=== PATIENT | female | born 1940 | race Two or more races ===

== ENCOUNTER 2017-05-16 13:47 | Inpatient (IN) | payer MEDICAID, MEDICARE ==
[~2017-05-16] VITALS: Ht 152.4 cm; Wt 51.7 kg
[2017-05-16] MEDS ORDERED: ATOR10TA PO (14:26)
[2017-05-16] MEDS ORDERED: NIFE60TA73 PO (14:26)
[2017-05-16] MEDS ORDERED: OLME20TA23 PO (14:26)
[2017-05-16] MEDS ORDERED: MELO-105 PO (14:26)
[2017-05-16] MEDS ORDERED: IV NS 0.9% 1,000 ML BAG IV ONE (14:30)
[2017-05-16] MEDS ORDERED: PIPERACILLIN /TAZOBACTAM 3.375 G in IV D5W 50 ML IV ONE (14:30)
[2017-05-16] MEDS ORDERED: VANCOMYCIN 1 GM in IV D5W 250 ML IV ONE (14:30)
[2017-05-16 14:37] LABS: BASOPHILS # (AUTO) 0.1 /CMM (0.0-0.2); EOSINOPHILS # (AUTO) 0.4 /CMM (0.0-0.7); EOSINOPHILS % (AUTO) 5.3 % (0.0-6.0); HEMATOCRIT 31 % (33-45); HEMOGLOBIN 10.9 g/dL (11.5-14.8); LYMPHOCYTES # (AUTO) 1.1 /CMM (0.8-4.8); LYMPHOCYTES % (AUTO) 14.8 % (20.0-44.0); MEAN CORPUSCULAR HEMOGLOBIN 31 PG (26.0-33.0); MEAN CORPUSCULAR HGB CONC 35 g/dl (31.0-36.0); MEAN CORPUSCULAR VOLUME 89 fL (82-100); MONOCYTES # (AUTO) 0.9 /CMM (0.1-1.30); MONOCYTES % (AUTO) 12.1 % (2.0-12.0); NEUTROPHILS # (AUTO) 4.8 /CMM (1.8-8.9); NEUTROPHILS % (AUTO) 66.8 % (43.0-81.0); PLATELET COUNT (AUTO) 368 /CMM (150-450); RDW COEFFICIENT OF VARIATION 14.2 (11.5-15.0); RED BLOOD CELL COUNT(AUTO) 3.52 MIL/uL (4.0-5.2); WHITE BLOOD COUNT (AUTO) 7.3 K/uL (4.3-11.0)
[2017-05-16 14:50] LABS: INR 0.97 (0.87-1.13); PROTHROMBIN TIME 10.1 SECS (9.5-12.7)
[2017-05-16 14:53] LABS: ALANINE AMINOTRANSFERASE 33 U/L (12-78); ALBUMIN 3.3 g/dL (3.4-5.0); ALKALINE PHOSPHATASE 84 U/L (46-116); ASPARTATE AMINOTRANSFERASE 35 U/L (15-37); BILIRUBIN,DIRECT 0.1 mg/dL (0.0-0.2); BILIRUBIN,TOTAL 0.4 mg/dL (0.2-1.0); CALCIUM, SERUM 9.1 mg/dL (8.5-10.1); CARBON DIOXIDE 27 mmol/L (21-32); CHLORIDE 97 mmol/L (98-107); CREATININE 1.1 mg/dL (0.6-1.3); GLUCOSE 126 mg/dL (74-106); POTASSIUM 4.1 mmol/L (3.5-5.1); SODIUM SERUM 135 mmol/L (136-145); TOTAL PROTEIN, SERUM 8.1 g/dL (6.4-8.2); UREA NITROGEN, BLOOD 21 mg/dL (7-18)
[2017-05-16 14:55] LABS: TROPONIN I < 0.017 ng/mL (0.00-0.056)
[2017-05-16 15:43] LABS: APPEARANCE,URINE Clear (CLEAR); BILIRUBIN,URINE Negative (NEGATIVE); BLOOD, URINE Small Ery/uL (NEGATIVE); COLOR,URINE Yellow (YELLOW); KETONES,URINE Negative (NEGATIVE); LEUKOCYTE ESTERASE ,URINE Moderate (NEGATIVE); NITRITE, URINE Negative (NEGATIVE); PROTEIN,URINE Negative (NEGATIVE); UGLUCOSE Negative (NEGATIVE); UROBILINOGEN,URINE 0.2 EU/dL (0.2)
[2017-05-16 15:47] LABS: BACTERIA,URINE 1+ /HPF (None Seen); SQUAMOUS EPITHELIAL CELL,UR Moderate /HPF (None Seen)
[2017-05-16] MEDS ORDERED: ACETAMINOPHEN 325 MG TABLET PO PRN (18:00)
[2017-05-16] MEDS ORDERED: ONDANSETRON HCL/PF 4 MG/2 ML VIAL IVP PRN (18:00)
[2017-05-16] MEDS ORDERED: MAG HYDROX/AL HYDROX/SIMETH 30 ML UDC PO PRN (18:00)
[2017-05-16] MEDS ORDERED: Z GUARD REMEDY 2 OZ OINT TP PRN (18:00)
[2017-05-16] MEDS ORDERED: ZOLPIDEM TARTRATE 5 MG TABLET PO PRN (18:00)
[2017-05-16] MEDS ORDERED: HYDROCODONE/APAP 5/325MG 1 EACH TABLET PO PRN (18:00)
[2017-05-16] MEDS ORDERED: FEE PK DOSING 1 MIN EA MC ONE (18:57)
[2017-05-16 20:00] VITALS: BP 116/66
[2017-05-16] MEDS: IV NS 0.9% 1,000 ML IV PRN (21:10)
[2017-05-16] MEDS: CEFTRIAXONE 1 G in IV D5W 50 ML IV SCH (21:11)
[2017-05-17] MEDS ORDERED: LOSA100T15 PO (00:15)
[2017-05-17] MEDS ORDERED: TERI2.4P SUBCUT (00:15)
[2017-05-17] MEDS ORDERED: ASPI-1152 PO (00:15)
[2017-05-17] MEDS: VANCOMYCIN 500 MG in IV D5W 100 ML IV SCH ×2 (02:33→15:45)
[2017-05-17 07:40] LABS: BASOPHILS # (AUTO) 0.1 /CMM (0.0-0.2); BASOPHILS % (AUTO) 1.3 % (0.0-2.0); EOSINOPHILS # (AUTO) 1.3 /CMM (0.0-0.7); EOSINOPHILS % (AUTO) 19.5 % (0.0-6.0); HEMATOCRIT 29 % (33-45); HEMOGLOBIN 10.2 g/dL (11.5-14.8); LYMPHOCYTES # (AUTO) 1.3 /CMM (0.8-4.8); LYMPHOCYTES % (AUTO) 20.7 % (20.0-44.0); MEAN CORPUSCULAR HEMOGLOBIN 31 PG (26.0-33.0); MEAN CORPUSCULAR HGB CONC 35 g/dl (31.0-36.0); MEAN CORPUSCULAR VOLUME 91 fL (82-100); MONOCYTES # (AUTO) 0.8 /CMM (0.1-1.30); MONOCYTES % (AUTO) 12.5 % (2.0-12.0); PLATELET COUNT (AUTO) 368 /CMM (150-450); RDW COEFFICIENT OF VARIATION 14.8 (11.5-15.0); RED BLOOD CELL COUNT(AUTO) 3.24 MIL/uL (4.0-5.2); WHITE BLOOD COUNT (AUTO) 6.5 K/uL (4.3-11.0)
[2017-05-17 07:51] LABS: CHOLESTEROL 145 mg/dL (<200); HDL CHOLESTEROL 55 mg/dL (40-60); LDL 78 mg/dL (0-99); TRIGLYCERIDES 53 mg/dL (30-150)
[2017-05-17 07:57] LABS: CALCIUM, SERUM 8.9 mg/dL (8.5-10.1); CARBON DIOXIDE 29 mmol/L (21-32); CHLORIDE 104 mmol/L (98-107); CREATININE 0.9 mg/dL (0.6-1.3); GLUCOSE 98 mg/dL (74-106); MAGNESIUM 1.6 mg/dL (1.8-2.4); PHOSPHORUS 3.9 mg/dL (2.5-4.9); POTASSIUM 4.2 mmol/L (3.5-5.1); SODIUM SERUM 143 mmol/L (136-145); UREA NITROGEN, BLOOD 10 mg/dL (7-18)
[2017-05-17 08:39] VITALS: BP 138/60
[2017-05-17] MEDS: Magnesium 1GM/D5W 100ML PREMIX 100 ML IV SCH ×2 (10:15→11:31)
[2017-05-17] MEDS: NIFEdipine XL 60 MG TAB PO SCH (14:30)
[2017-05-17 16:00] VITALS: BP 134/77
[2017-05-17] MEDS: LACTOBACILLUS RHAMNOSUS GG 1 EACH CAP.SPRINK PO SCH (17:23)
[2017-05-17] MEDS: ATORVASTATIN 10 MG TABLET PO SCH (17:24)
[2017-05-17] MEDS: LOSARTAN POTASSIUM 50 MG TABLET PO SCH (17:24)
[2017-05-17] MEDS: IV NS 0.9% 1,000 ML IV PRN (17:59)
[2017-05-17 20:00] VITALS: BP 121/64
[2017-05-17 20:39] VITALS: BP 121/64
[2017-05-17] MEDS: CEFTRIAXONE 1 G in IV D5W 50 ML IV SCH (21:21)
[2017-05-18] MEDS: VANCOMYCIN 500 MG in IV D5W 100 ML IV SCH ×2 (03:17→15:58)
[2017-05-18] MEDS: IV NS 0.9% 1,000 ML IV PRN (05:37)
[2017-05-18 06:48] LABS: BASOPHILS % (AUTO) 0.6 % (0.0-2.0); EOSINOPHILS # (AUTO) 1.9 /CMM (0.0-0.7); EOSINOPHILS % (AUTO) 24.2 % (0.0-6.0); HEMATOCRIT 29 % (33-45); LYMPHOCYTES # (AUTO) 1.6 /CMM (0.8-4.8); LYMPHOCYTES % (AUTO) 20.3 % (20.0-44.0); MEAN CORPUSCULAR HEMOGLOBIN 32 PG (26.0-33.0); MEAN CORPUSCULAR HGB CONC 35 g/dl (31.0-36.0); MEAN CORPUSCULAR VOLUME 91 fL (82-100); MONOCYTES # (AUTO) 0.8 /CMM (0.1-1.30); MONOCYTES % (AUTO) 10.4 % (2.0-12.0); NEUTROPHILS # (AUTO) 3.4 /CMM (1.8-8.9); NEUTROPHILS % (AUTO) 44.5 % (43.0-81.0); PLATELET COUNT (AUTO) 357 /CMM (150-450); RDW COEFFICIENT OF VARIATION 14.8 (11.5-15.0); RED BLOOD CELL COUNT(AUTO) 3.17 MIL/uL (4.0-5.2); WHITE BLOOD COUNT (AUTO) 7.7 K/uL (4.3-11.0)
[2017-05-18 07:09] LABS: CALCIUM, SERUM 8.8 mg/dL (8.5-10.1); CARBON DIOXIDE 28 mmol/L (21-32); CHLORIDE 103 mmol/L (98-107); CREATININE 0.7 mg/dL (0.6-1.3); GLUCOSE 102 mg/dL (74-106); MAGNESIUM 1.8 mg/dL (1.8-2.4); PHOSPHORUS 4.9 mg/dL (2.5-4.9); SODIUM SERUM 140 mmol/L (136-145); UREA NITROGEN, BLOOD 11 mg/dL (7-18)
[2017-05-18 08:00] VITALS: BP 125/60
[2017-05-18 08:46] LABS: EOSINOPHILS % (MANUAL) 29 % (0-4); LYMPHOCYTES % (MANUAL) 24 % (16-48); MONOCYTES % (MANUAL) 11 % (0-11.0); NEUTROPHILS % (MANUAL) 36 (42-76)
[2017-05-18] MEDS ORDERED: ASPIRIN EC 81 MG TABLET.DR PO SCH (09:00)
[2017-05-18] MEDS ORDERED: MELOXICAM 7.5 MG TABLET PO SCH (09:00)
[2017-05-18] MEDS: LOSARTAN POTASSIUM 50 MG TABLET PO SCH ×2 (09:46→16:48)
[2017-05-18] MEDS: LACTOBACILLUS RHAMNOSUS GG 1 EACH CAP.SPRINK PO SCH ×2 (09:46→16:49)
[2017-05-18] MEDS: NIFEdipine XL 60 MG TAB PO SCH (09:46)
[2017-05-18] MEDS ORDERED: SULF1TAB48 PO (11:35)
[2017-05-18 16:00] VITALS: BP 161/85
[2017-05-18] MEDS: ATORVASTATIN 10 MG TABLET PO SCH (16:48)
[2017-05-18 19:30] VITALS: BP 148/80
[2017-05-18 19:56] VITALS: BP 148/80
== END 2017-05-18 20:00 | disposition home or self-care (01) | DRG 364 ==
LOC: ER 13:49 → MEDSG2 18:31
PROVIDERS: ADMIT Nurse Practitioner Acute Care; ATTEND Nurse Practitioner Acute Care
PROC: 0KBV0ZZ Excision of Right Foot Muscle, Open Approach (ICD-10-PCS; principal; 2017-05-18)
DX: L03.115 Cellulitis of right lower limb (principal); E44.1 Mild protein-calorie malnutrition; N39.0 Urinary tract infection, site not specified; G62.9 Polyneuropathy, unspecified; L97.519 Non-pressure chronic ulcer of other part of right foot with unspecified severity; E86.0 Dehydration; E78.5 Hyperlipidemia, unspecified; I10 Essential (primary) hypertension; Z79.899 Other long term (current) drug therapy; D63.8 Anemia in other chronic diseases classified elsewhere; M85.80 Other specified disorders of bone density and structure, unspecified site; M19.90 Unspecified osteoarthritis, unspecified site; E87.1 Hypo-osmolality and hyponatremia; M24.874 Other specific joint derangements of right foot, not elsewhere classified
CPT/HCPCS: 36415; 73630-TC; 80048-TC; 80061-TC; 80076-TC; 80202-TC; 81000-TC; 83605-TC; 83735-TC; 84100-TC; 84484-TC; 85025-TC; 85730-TC; 87040-TC; 87081-TC; 87086-TC; A4606; A6402; A6407; J0696; J2543; J3370; J3475; J7030; J7060; Z7610

== ENCOUNTER 2017-05-21 12:13 | Outpatient (CLI) | payer MEDICAID, MEDICARE ==
[~2017-05-21 12:13] MED LIST: ASPI-1152 PO; ATOR10TA PO; LOSA100T15 PO; MELO-105 PO; NIFE60TA73 PO; OLME20TA23 PO; SULF1TAB48 PO; TERI2.4P SUBCUT
[2017-05-21 12:22] VITALS: BP 149/96
== END 2017-05-21 23:59 | disposition home or self-care (01) ==
LOC: MSC 12:13
PROVIDERS: ATTEND Internal Medicine
DX: L97.519 Non-pressure chronic ulcer of other part of right foot with unspecified severity (principal); G89.29 Other chronic pain; M06.9 Rheumatoid arthritis, unspecified; G62.9 Polyneuropathy, unspecified; I12.9 Hypertensive chronic kidney disease with stage 1 through stage 4 chronic kidney disease, or unspecified chronic kidney disease; D63.1 Anemia in chronic kidney disease; N18.9 Chronic kidney disease, unspecified; E43 Unspecified severe protein-calorie malnutrition; E88.09 Other disorders of plasma-protein metabolism, not elsewhere classified; N39.0 Urinary tract infection, site not specified
CPT/HCPCS: 99211; G0463

== ENCOUNTER → 2017-06-01 | Outpatient (CLI) | payer MEDICARE, MEDICAID | END | disposition home health service (06) | LOC: WOU 13:50 | PROVIDERS: ATTEND Podiatrist Foot & Ankle Surgery | DX: L97.412 Non-pressure chronic ulcer of right heel and midfoot with fat layer exposed (principal); G90.09 Other idiopathic peripheral autonomic neuropathy; M05.771 Rheumatoid arthritis with rheumatoid factor of right ankle and foot without organ or systems involvement; M20.41 Other hammer toe(s) (acquired), right foot; M20.42 Other hammer toe(s) (acquired), left foot; L84 Corns and callosities; M24.374 Pathological dislocation of right foot, not elsewhere classified | CPT/HCPCS: 11042; A6402; A6407 ==

== ENCOUNTER 2017-06-04 10:58 | Outpatient (CLI) | payer MEDICARE, MEDICAID | END 2017-06-04 23:59 | disposition home or self-care (01) | LOC: WOU 10:58 | PROVIDERS: ATTEND Podiatrist Foot & Ankle Surgery | DX: I70.213 Atherosclerosis of native arteries of extremities with intermittent claudication, bilateral legs (principal); G62.9 Polyneuropathy, unspecified; S91.301A Unspecified open wound, right foot, initial encounter; X58.XXXA Exposure to other specified factors, initial encounter; Y92.89 Other specified places as the place of occurrence of the external cause | CPT/HCPCS: 93970-TC ==

== ENCOUNTER 2017-06-08 13:30 | Outpatient (CLI) | payer MEDICARE, MEDICAID | END 2017-06-08 23:59 | disposition home health service (06) | LOC: WOU 13:30 | PROVIDERS: ATTEND Podiatrist Foot & Ankle Surgery | DX: G90.09 Other idiopathic peripheral autonomic neuropathy (principal); L97.512 Non-pressure chronic ulcer of other part of right foot with fat layer exposed; M05.771 Rheumatoid arthritis with rheumatoid factor of right ankle and foot without organ or systems involvement; M20.41 Other hammer toe(s) (acquired), right foot; M20.42 Other hammer toe(s) (acquired), left foot; L84 Corns and callosities | CPT/HCPCS: 11042; A6402; A6407 ==

== ENCOUNTER 2017-06-18 13:20 | Outpatient (CLI) | payer MEDICARE, MEDICAID | END 2017-06-18 23:59 | disposition home health service (06) | LOC: WOU 13:20 | PROVIDERS: ATTEND Podiatrist Foot & Ankle Surgery | DX: G90.09 Other idiopathic peripheral autonomic neuropathy (principal); L97.512 Non-pressure chronic ulcer of other part of right foot with fat layer exposed; M05.771 Rheumatoid arthritis with rheumatoid factor of right ankle and foot without organ or systems involvement; M20.41 Other hammer toe(s) (acquired), right foot; M20.42 Other hammer toe(s) (acquired), left foot; L84 Corns and callosities; Z96.642 Presence of left artificial hip joint; I10 Essential (primary) hypertension; M24.477 Recurrent dislocation, right toe(s) | CPT/HCPCS: 11042; A6407; A6402 ==

== ENCOUNTER 2017-06-25 13:30 | Outpatient (CLI) | payer MEDICARE, MEDICAID | END 2017-06-25 23:59 | disposition home health service (06) | LOC: WOU 13:30 | PROVIDERS: ATTEND Podiatrist Foot & Ankle Surgery | DX: L97.512 Non-pressure chronic ulcer of other part of right foot with fat layer exposed (principal); M05.771 Rheumatoid arthritis with rheumatoid factor of right ankle and foot without organ or systems involvement; G90.09 Other idiopathic peripheral autonomic neuropathy; M20.42 Other hammer toe(s) (acquired), left foot; M20.41 Other hammer toe(s) (acquired), right foot; E78.5 Hyperlipidemia, unspecified; I10 Essential (primary) hypertension | CPT/HCPCS: 11042; A6402 ==

== ENCOUNTER 2017-07-02 13:27 | Outpatient (CLI) | payer MEDICARE, MEDICAID | END 2017-07-02 23:59 | disposition home health service (06) | LOC: WOU 13:27 | PROVIDERS: ATTEND Podiatrist Foot & Ankle Surgery | DX: M05.771 Rheumatoid arthritis with rheumatoid factor of right ankle and foot without organ or systems involvement (principal); G90.09 Other idiopathic peripheral autonomic neuropathy; L84 Corns and callosities; M20.41 Other hammer toe(s) (acquired), right foot; M20.42 Other hammer toe(s) (acquired), left foot | CPT/HCPCS: G0463 ==

== ENCOUNTER 2017-07-30 13:49 | Outpatient (CLI) | payer MEDICARE, MEDICAID | END 2017-07-30 23:59 | disposition home or self-care (01) | LOC: WOU 13:49 | PROVIDERS: ATTEND Podiatrist Foot & Ankle Surgery | DX: Z09 Encounter for follow-up examination after completed treatment for conditions other than malignant neoplasm (principal); M05.771 Rheumatoid arthritis with rheumatoid factor of right ankle and foot without organ or systems involvement; G90.09 Other idiopathic peripheral autonomic neuropathy; M20.41 Other hammer toe(s) (acquired), right foot; M20.42 Other hammer toe(s) (acquired), left foot; L84 Corns and callosities | CPT/HCPCS: G0463 ==

== ENCOUNTER 2018-01-14 09:47 | Outpatient (CLI) | payer MEDICARE, MEDICAID | END 2018-01-14 23:59 | disposition home or self-care (01) | LOC: WOU 09:47 | PROVIDERS: ATTEND Podiatrist Foot & Ankle Surgery | DX: S91.311A Laceration without foreign body, right foot, initial encounter (principal); X58.XXXA Exposure to other specified factors, initial encounter; Y92.89 Other specified places as the place of occurrence of the external cause; I70.203 Unspecified atherosclerosis of native arteries of extremities, bilateral legs; L84 Corns and callosities; M20.41 Other hammer toe(s) (acquired), right foot; M20.42 Other hammer toe(s) (acquired), left foot; G90.09 Other idiopathic peripheral autonomic neuropathy; M05.771 Rheumatoid arthritis with rheumatoid factor of right ankle and foot without organ or systems involvement; Z96.642 Presence of left artificial hip joint; Z79.899 Other long term (current) drug therapy | CPT/HCPCS: 11042; A6402; J3490; Z7610 ==

== ENCOUNTER 2018-01-21 10:20 | Outpatient (CLI) | payer MEDICARE, MEDICAID | END 2018-01-21 23:59 | disposition home or self-care (01) | LOC: WOU 10:20 | PROVIDERS: ATTEND Podiatrist Foot & Ankle Surgery | DX: L97.512 Non-pressure chronic ulcer of other part of right foot with fat layer exposed (principal); S91.311S Laceration without foreign body, right foot, sequela; X58.XXXS Exposure to other specified factors, sequela; M05.771 Rheumatoid arthritis with rheumatoid factor of right ankle and foot without organ or systems involvement; I10 Essential (primary) hypertension; I70.203 Unspecified atherosclerosis of native arteries of extremities, bilateral legs; E78.5 Hyperlipidemia, unspecified; Z96.642 Presence of left artificial hip joint; M20.42 Other hammer toe(s) (acquired), left foot; M20.41 Other hammer toe(s) (acquired), right foot; L84 Corns and callosities; G90.09 Other idiopathic peripheral autonomic neuropathy | CPT/HCPCS: 11042; A6402; Z7610 ==

== ENCOUNTER 2018-01-28 10:11 | Outpatient (CLI) | payer MEDICARE, MEDICAID | END 2018-01-28 23:59 | disposition home or self-care (01) | LOC: WOU 10:11 | PROVIDERS: ATTEND Podiatrist Foot & Ankle Surgery | DX: Z48.817 Encounter for surgical aftercare following surgery on the skin and subcutaneous tissue (principal); M06.9 Rheumatoid arthritis, unspecified; L84 Corns and callosities; G90.09 Other idiopathic peripheral autonomic neuropathy; M20.42 Other hammer toe(s) (acquired), left foot; M20.41 Other hammer toe(s) (acquired), right foot; I10 Essential (primary) hypertension; E78.5 Hyperlipidemia, unspecified; I70.203 Unspecified atherosclerosis of native arteries of extremities, bilateral legs | CPT/HCPCS: A6402; G0463; Z7610 ==

== ENCOUNTER 2018-04-15 12:31 | Outpatient (CLI) | payer MEDICARE, OTHER ==
[~2018-04-15 12:31] MED LIST changes: -LOSA100T15 PO; +LOSA100T31 PO
== END 2018-04-15 23:59 | disposition home or self-care (01) ==
LOC: WOU 12:31
PROVIDERS: ATTEND Podiatrist Foot & Ankle Surgery
DX: M05.771 Rheumatoid arthritis with rheumatoid factor of right ankle and foot without organ or systems involvement (principal); M79.671 Pain in right foot; L84 Corns and callosities; G90.09 Other idiopathic peripheral autonomic neuropathy; M20.41 Other hammer toe(s) (acquired), right foot; M20.42 Other hammer toe(s) (acquired), left foot; Z96.642 Presence of left artificial hip joint
CPT/HCPCS: A6402; G0463; Z7610

== ENCOUNTER 2018-04-22 12:50 | Outpatient (CLI) | payer MEDICARE, OTHER | END 2018-04-22 23:59 | disposition home or self-care (01) | LOC: RAD 12:50 | PROVIDERS: ATTEND Podiatrist Foot & Ankle Surgery | DX: S93.124A Dislocation of metatarsophalangeal joint of right lesser toe(s), initial encounter (principal); X58.XXXA Exposure to other specified factors, initial encounter; Y93.89 Activity, other specified; Y92.89 Other specified places as the place of occurrence of the external cause; Y99.8 Other external cause status | CPT/HCPCS: 73630-TC ==

== ENCOUNTER 2018-11-25 09:25 | Outpatient (CLI) | payer MEDICARE, OTHER | END 2018-11-25 23:59 | disposition home or self-care (01) | LOC: WOU 09:25 | PROVIDERS: ATTEND Podiatrist Foot & Ankle Surgery | DX: L97.512 Non-pressure chronic ulcer of other part of right foot with fat layer exposed (principal); L97.522 Non-pressure chronic ulcer of other part of left foot with fat layer exposed; G90.09 Other idiopathic peripheral autonomic neuropathy; M05.771 Rheumatoid arthritis with rheumatoid factor of right ankle and foot without organ or systems involvement; L84 Corns and callosities; M20.41 Other hammer toe(s) (acquired), right foot; M20.42 Other hammer toe(s) (acquired), left foot; I10 Essential (primary) hypertension; Z96.642 Presence of left artificial hip joint | CPT/HCPCS: 11042; J3490 ==

== ENCOUNTER 2018-12-02 09:45 | Outpatient (CLI) | payer MEDICARE, OTHER | END 2018-12-02 23:59 | disposition home or self-care (01) | LOC: WOU 09:45 | PROVIDERS: ATTEND Podiatrist Foot & Ankle Surgery | DX: L97.512 Non-pressure chronic ulcer of other part of right foot with fat layer exposed (principal); L97.522 Non-pressure chronic ulcer of other part of left foot with fat layer exposed; G90.09 Other idiopathic peripheral autonomic neuropathy; M05.771 Rheumatoid arthritis with rheumatoid factor of right ankle and foot without organ or systems involvement; L84 Corns and callosities; M20.41 Other hammer toe(s) (acquired), right foot; M20.42 Other hammer toe(s) (acquired), left foot; I10 Essential (primary) hypertension; E78.5 Hyperlipidemia, unspecified; Z96.642 Presence of left artificial hip joint | CPT/HCPCS: 11042 ==

== ENCOUNTER 2018-12-09 12:30 | Outpatient (CLI) | payer MEDICARE, OTHER | END 2018-12-09 23:59 | disposition home or self-care (01) | LOC: WOU 12:30 | PROVIDERS: ATTEND Podiatrist Foot & Ankle Surgery | DX: L97.512 Non-pressure chronic ulcer of other part of right foot with fat layer exposed (principal); G90.09 Other idiopathic peripheral autonomic neuropathy; M05.771 Rheumatoid arthritis with rheumatoid factor of right ankle and foot without organ or systems involvement; L84 Corns and callosities; M20.41 Other hammer toe(s) (acquired), right foot; M20.42 Other hammer toe(s) (acquired), left foot; Z79.899 Other long term (current) drug therapy | CPT/HCPCS: 11042 ==

== ENCOUNTER 2018-12-16 09:57 | Outpatient (CLI) | payer MEDICARE, OTHER | END 2018-12-16 23:59 | disposition home or self-care (01) | LOC: WOU 09:57 | PROVIDERS: ATTEND Podiatrist Foot & Ankle Surgery | DX: L97.512 Non-pressure chronic ulcer of other part of right foot with fat layer exposed (principal); G90.09 Other idiopathic peripheral autonomic neuropathy; M20.41 Other hammer toe(s) (acquired), right foot; M20.42 Other hammer toe(s) (acquired), left foot; L84 Corns and callosities; M05.771 Rheumatoid arthritis with rheumatoid factor of right ankle and foot without organ or systems involvement; Z96.642 Presence of left artificial hip joint; Z79.899 Other long term (current) drug therapy | CPT/HCPCS: 11042 ==

== ENCOUNTER 2019-01-06 12:35 | Outpatient (CLI) | payer MEDICARE, OTHER | END 2019-01-06 23:59 | disposition home or self-care (01) | LOC: WOU 12:35 | PROVIDERS: ATTEND Podiatrist Foot & Ankle Surgery | DX: L97.522 Non-pressure chronic ulcer of other part of left foot with fat layer exposed (principal); G90.09 Other idiopathic peripheral autonomic neuropathy; M05.771 Rheumatoid arthritis with rheumatoid factor of right ankle and foot without organ or systems involvement; L84 Corns and callosities; M79.671 Pain in right foot; M20.41 Other hammer toe(s) (acquired), right foot; M20.42 Other hammer toe(s) (acquired), left foot; Z96.642 Presence of left artificial hip joint; I70.203 Unspecified atherosclerosis of native arteries of extremities, bilateral legs | CPT/HCPCS: 11042 ==

== ENCOUNTER 2019-01-20 08:45 | Outpatient (CLI) | payer MEDICARE, OTHER | END 2019-01-20 23:59 | disposition home or self-care (01) | LOC: WOU 08:45 | PROVIDERS: ATTEND Podiatrist Foot & Ankle Surgery | DX: Z09 Encounter for follow-up examination after completed treatment for conditions other than malignant neoplasm (principal); G90.09 Other idiopathic peripheral autonomic neuropathy; M05.771 Rheumatoid arthritis with rheumatoid factor of right ankle and foot without organ or systems involvement; L84 Corns and callosities; M20.41 Other hammer toe(s) (acquired), right foot; M20.42 Other hammer toe(s) (acquired), left foot; Z96.642 Presence of left artificial hip joint | CPT/HCPCS: G0463 ==

== ENCOUNTER 2019-07-07 12:50 | Outpatient (CLI) | payer MEDICARE, OTHER ==
[2019-07-07 14:48] LABS: BASOPHILS # (AUTO) 0.1 /CMM (0.0-0.2); BASOPHILS % (AUTO) 0.7 % (0.0-2.0); EOSINOPHILS % (AUTO) 4.6 % (0.0-6.0); HEMATOCRIT 34 % (33-45); HEMOGLOBIN 11.4 g/dL (11.5-14.8); LYMPHOCYTES # (AUTO) 1.3 /CMM (0.8-4.8); LYMPHOCYTES % (AUTO) 16.7 % (20.0-44.0); MEAN CORPUSCULAR HGB CONC 33 g/dl (31.0-36.0); MEAN CORPUSCULAR VOLUME 91 fL (82-100); MONOCYTES # (AUTO) 0.6 /CMM (0.1-1.30); MONOCYTES % (AUTO) 7.2 % (2.0-12.0); NEUTROPHILS # (AUTO) 5.4 /CMM (1.8-8.9); NEUTROPHILS % (AUTO) 70.8 % (43.0-81.0); PLATELET COUNT (AUTO) 301 /CMM (150-450); RED BLOOD CELL COUNT(AUTO) 3.73 MIL/uL (4.0-5.2); WHITE BLOOD COUNT (AUTO) 7.7 K/uL (4.3-11.0)
[2019-07-07 15:32] LABS: PREALBUMIN 21.9 MG/DL (18.0-35.7)
[2019-07-07 15:34] LABS: ALBUMIN 3.7 g/dL (3.4-5.0); BILIRUBIN,TOTAL 0.3 mg/dL (0.2-1.0); CALCIUM, SERUM 9.4 mg/dL (8.5-10.1); CREATININE 0.9 mg/dL (0.6-1.3)
== END 2019-07-07 23:59 | disposition home or self-care (01) ==
LOC: WOU 12:50
PROVIDERS: ATTEND Podiatrist Foot & Ankle Surgery
DX: L97.512 Non-pressure chronic ulcer of other part of right foot with fat layer exposed (principal); L97.522 Non-pressure chronic ulcer of other part of left foot with fat layer exposed; G90.09 Other idiopathic peripheral autonomic neuropathy; E78.5 Hyperlipidemia, unspecified; I10 Essential (primary) hypertension; Z96.642 Presence of left artificial hip joint; M06.9 Rheumatoid arthritis, unspecified; Z79.82 Long term (current) use of aspirin; Z79.899 Other long term (current) drug therapy; L84 Corns and callosities; M05.771 Rheumatoid arthritis with rheumatoid factor of right ankle and foot without organ or systems involvement; M20.41 Other hammer toe(s) (acquired), right foot; M20.42 Other hammer toe(s) (acquired), left foot; L03.115 Cellulitis of right lower limb; S90.821A Blister (nonthermal), right foot, initial encounter; X58.XXXA Exposure to other specified factors, initial encounter; Y93.89 Activity, other specified; Y92.89 Other specified places as the place of occurrence of the external cause
CPT/HCPCS: 11042; 11045; 36415; 80053-TC; 84134-TC; 85025-TC; 87070-TC; 87075-TC

== ENCOUNTER 2019-07-14 12:50 | Outpatient (CLI) | payer MEDICARE, OTHER | END 2019-07-14 23:59 | disposition home or self-care (01) | LOC: WOU 12:50 | PROVIDERS: ATTEND Podiatrist Foot & Ankle Surgery | DX: G90.09 Other idiopathic peripheral autonomic neuropathy (principal); L97.512 Non-pressure chronic ulcer of other part of right foot with fat layer exposed; M20.41 Other hammer toe(s) (acquired), right foot; M20.42 Other hammer toe(s) (acquired), left foot; M05.771 Rheumatoid arthritis with rheumatoid factor of right ankle and foot without organ or systems involvement; L84 Corns and callosities; I10 Essential (primary) hypertension; E78.5 Hyperlipidemia, unspecified; Z96.642 Presence of left artificial hip joint; M79.671 Pain in right foot | CPT/HCPCS: 11042 ==

== ENCOUNTER 2019-07-21 10:18 | Outpatient (CLI) | payer MEDICARE, OTHER | END 2019-07-21 23:59 | disposition home or self-care (01) | LOC: WOU 10:18 | PROVIDERS: ATTEND Podiatrist Foot & Ankle Surgery | DX: G90.09 Other idiopathic peripheral autonomic neuropathy (principal); L84 Corns and callosities; M20.42 Other hammer toe(s) (acquired), left foot; M20.41 Other hammer toe(s) (acquired), right foot; M05.771 Rheumatoid arthritis with rheumatoid factor of right ankle and foot without organ or systems involvement; I10 Essential (primary) hypertension | CPT/HCPCS: G0463 ==

== ENCOUNTER 2019-09-29 09:42 | Outpatient (CLI) | payer MEDICARE, OTHER ==
[~2019-09-29 09:42] MED LIST changes: -ASPI-1152 PO; +ASPI-1420 PO
== END 2019-09-29 23:59 | disposition home or self-care (01) ==
LOC: WOU 09:42
PROVIDERS: ATTEND Podiatrist Foot & Ankle Surgery
DX: G90.09 Other idiopathic peripheral autonomic neuropathy (principal); L97.522 Non-pressure chronic ulcer of other part of left foot with fat layer exposed; L84 Corns and callosities; S90.821D Blister (nonthermal), right foot, subsequent encounter; X58.XXXD Exposure to other specified factors, subsequent encounter; M05.771 Rheumatoid arthritis with rheumatoid factor of right ankle and foot without organ or systems involvement; M20.42 Other hammer toe(s) (acquired), left foot; M20.41 Other hammer toe(s) (acquired), right foot; Z79.82 Long term (current) use of aspirin
CPT/HCPCS: 11042

== ENCOUNTER 2019-10-13 13:15 | Outpatient (CLI) | payer MEDICARE, OTHER ==
[~2019-10-13 13:15] MED LIST changes: +ASPI-1152 PO; -ASPI-1420 PO
== END 2019-10-13 23:59 | disposition home or self-care (01) ==
LOC: WOU 13:15
PROVIDERS: ATTEND Podiatrist Foot & Ankle Surgery
DX: G90.09 Other idiopathic peripheral autonomic neuropathy (principal); L84 Corns and callosities; M05.771 Rheumatoid arthritis with rheumatoid factor of right ankle and foot without organ or systems involvement; M20.42 Other hammer toe(s) (acquired), left foot; M20.41 Other hammer toe(s) (acquired), right foot; Z79.82 Long term (current) use of aspirin
CPT/HCPCS: G0463

== ENCOUNTER 2020-04-05 09:50 | Outpatient (CLI) | payer MEDICARE, OTHER ==
[~2020-04-05 09:50] MED LIST changes: -ASPI-1152 PO; +ASPI-1420 PO
[2020-04-05] MEDS ORDERED: LIDOCAINE 2% JEL 5 ML TUBE ONE (10:49)
== END 2020-04-05 23:59 | disposition home or self-care (01) ==
LOC: WOU 09:50
PROVIDERS: ATTEND Podiatrist Foot & Ankle Surgery
DX: L84 Corns and callosities (principal); G90.09 Other idiopathic peripheral autonomic neuropathy; M05.771 Rheumatoid arthritis with rheumatoid factor of right ankle and foot without organ or systems involvement; M20.42 Other hammer toe(s) (acquired), left foot; M20.41 Other hammer toe(s) (acquired), right foot; Z79.82 Long term (current) use of aspirin
CPT/HCPCS: G0463

== ENCOUNTER 2020-06-07 11:00 | Outpatient (CLI) | payer MEDICARE, OTHER ==
[2020-06-07] MEDS ORDERED: LIDOCAINE SOLN 4% 50 ML BOTTLE ONE (11:25)
== END 2020-06-07 23:59 | disposition home health service (06) ==
LOC: WOU 11:00
PROVIDERS: ATTEND Podiatrist Foot & Ankle Surgery
DX: G90.09 Other idiopathic peripheral autonomic neuropathy (principal); L97.512 Non-pressure chronic ulcer of other part of right foot with fat layer exposed; L97.522 Non-pressure chronic ulcer of other part of left foot with fat layer exposed; L84 Corns and callosities; M20.42 Other hammer toe(s) (acquired), left foot; M20.41 Other hammer toe(s) (acquired), right foot; M05.771 Rheumatoid arthritis with rheumatoid factor of right ankle and foot without organ or systems involvement; Z79.82 Long term (current) use of aspirin
CPT/HCPCS: 11042; 11043

== ENCOUNTER 2020-06-14 11:25 | Outpatient (CLI) | payer MEDICARE, OTHER | END 2020-06-14 23:59 | disposition home health service (06) | LOC: WOU 11:25 | PROVIDERS: ATTEND Podiatrist Foot & Ankle Surgery | DX: G90.09 Other idiopathic peripheral autonomic neuropathy (principal); L97.522 Non-pressure chronic ulcer of other part of left foot with fat layer exposed; L97.512 Non-pressure chronic ulcer of other part of right foot with fat layer exposed; L84 Corns and callosities; M20.42 Other hammer toe(s) (acquired), left foot; M20.41 Other hammer toe(s) (acquired), right foot; M05.771 Rheumatoid arthritis with rheumatoid factor of right ankle and foot without organ or systems involvement; Z79.82 Long term (current) use of aspirin | CPT/HCPCS: 11042 ==

== ENCOUNTER 2020-06-21 08:45 | Outpatient (CLI) | payer MEDICARE, OTHER ==
[2020-06-21] MEDS ORDERED: LIDOCAINE SOLN 4% 50 ML BOTTLE ONE (08:49)
== END 2020-06-21 23:59 | disposition home health service (06) ==
LOC: WOU 08:45
PROVIDERS: ATTEND Podiatrist Foot & Ankle Surgery
DX: G90.09 Other idiopathic peripheral autonomic neuropathy (principal); L97.528 Non-pressure chronic ulcer of other part of left foot with other specified severity; M20.42 Other hammer toe(s) (acquired), left foot; M20.41 Other hammer toe(s) (acquired), right foot; M05.771 Rheumatoid arthritis with rheumatoid factor of right ankle and foot without organ or systems involvement; L84 Corns and callosities; Z79.82 Long term (current) use of aspirin
CPT/HCPCS: 11042

== ENCOUNTER 2020-06-28 10:53 | Outpatient (CLI) | payer MEDICARE, OTHER | END 2020-06-28 23:59 | disposition home health service (06) | LOC: WOU 10:53 | PROVIDERS: ATTEND Podiatrist Foot & Ankle Surgery | DX: G90.09 Other idiopathic peripheral autonomic neuropathy (principal); L97.522 Non-pressure chronic ulcer of other part of left foot with fat layer exposed; M05.771 Rheumatoid arthritis with rheumatoid factor of right ankle and foot without organ or systems involvement; M20.42 Other hammer toe(s) (acquired), left foot; M20.41 Other hammer toe(s) (acquired), right foot; L84 Corns and callosities; Z79.82 Long term (current) use of aspirin | CPT/HCPCS: 11042 ==

== ENCOUNTER 2020-07-12 10:55 | Outpatient (CLI) | payer MEDICARE, OTHER | END 2020-07-12 23:59 | disposition home health service (06) | LOC: WOU 10:55 | PROVIDERS: ATTEND Podiatrist Foot & Ankle Surgery | DX: G90.09 Other idiopathic peripheral autonomic neuropathy (principal); L97.522 Non-pressure chronic ulcer of other part of left foot with fat layer exposed; L84 Corns and callosities; M05.771 Rheumatoid arthritis with rheumatoid factor of right ankle and foot without organ or systems involvement; M20.42 Other hammer toe(s) (acquired), left foot; M20.41 Other hammer toe(s) (acquired), right foot; Z79.82 Long term (current) use of aspirin | CPT/HCPCS: 11042 ==

== ENCOUNTER 2020-08-02 10:25 | Outpatient (CLI) | payer MEDICARE, OTHER | END 2020-08-02 23:59 | disposition home health service (06) | LOC: WOU 10:25 | PROVIDERS: ATTEND Podiatrist Foot & Ankle Surgery | DX: G90.09 Other idiopathic peripheral autonomic neuropathy (principal); L84 Corns and callosities; M05.771 Rheumatoid arthritis with rheumatoid factor of right ankle and foot without organ or systems involvement; M20.42 Other hammer toe(s) (acquired), left foot; M20.41 Other hammer toe(s) (acquired), right foot; Z87.2 Personal history of diseases of the skin and subcutaneous tissue; Z79.82 Long term (current) use of aspirin | CPT/HCPCS: G0463 ==

== ENCOUNTER 2020-10-18 10:20 | Outpatient (CLI) | payer MEDICARE, OTHER | END 2020-10-18 23:59 | disposition home or self-care (01) | LOC: WOU 10:20 | PROVIDERS: ATTEND Podiatrist Foot & Ankle Surgery | DX: G90.09 Other idiopathic peripheral autonomic neuropathy (principal); L97.512 Non-pressure chronic ulcer of other part of right foot with fat layer exposed; L84 Corns and callosities; M05.771 Rheumatoid arthritis with rheumatoid factor of right ankle and foot without organ or systems involvement; M20.42 Other hammer toe(s) (acquired), left foot; M20.41 Other hammer toe(s) (acquired), right foot; Z79.82 Long term (current) use of aspirin | CPT/HCPCS: 11042 ==

== ENCOUNTER 2020-11-01 12:47 | Inpatient (IN) | payer MEDICAID, MEDICARE ==
[~2020-11-01] VITALS: Ht 160 cm; Wt 59.0 kg
--- NOTE | 2020-11-01 12:57 | NUR ---
Brought by EMS to the emergency department, the patient's son called 911 after his mother had a fall at home The patient states that she landed on her right hip (hardwood floor); the patient states that she did not lose consciousness or hit her head on the floor. The patient complained of severe right hip pain; right lower leg extremity shortening noted on initial exam.
[2020-11-01] MEDS ORDERED: TRAM50TA2 PO (14:40)
[2020-11-01] MEDS ORDERED: GABA-532 PO (14:40)
--- NOTE | 2020-11-01 14:46 | NUR ---
PT AAOX3, VSS. RR EVEN & UNLABORED. DENIES CP, SOB, DIZZINESS, N/V AT THIS TIME. WILL CONT TO MONITOR.
[2020-11-01] MEDS ORDERED: Z GUARD REMEDY 2 OZ OINT TP PRN ×2 (15:30→16:30)
[2020-11-01] MEDS ORDERED: ACETAMINOPHEN 325 MG TABLET PO PRN (15:30)
[2020-11-01] MEDS ORDERED: HYDROCODONE/APAP 5/325MG TABLET PO PRN (15:30)
[2020-11-01] MEDS ORDERED: ENOXAPARIN SODIUM 40 MG/0.4 ML DISP.SYRIN SQ SCH (15:30)
[2020-11-01] MEDS ORDERED: ONDANSETRON HCL/PF 4 MG/2 ML VIAL IVP PRN (15:30)
[2020-11-01] MEDS ORDERED: ZOLPIDEM TARTRATE 5 MG TABLET PO PRN (15:30)
[2020-11-01] MEDS ORDERED: MAGNESIUM HYDROXIDE 30 ML UDC PO PRN (15:30)
[2020-11-01] MEDS ORDERED: MAG HYDROX/AL HYDROX/SIMETH 30 ML UDC PO PRN (15:30)
[2020-11-01 15:45] LABS: BASOPHILS % (AUTO) 0.3 % (0.0-2.0); EOSINOPHILS % (AUTO) 0.6 % (0.0-6.0); HEMATOCRIT 32 % (33-45); HEMOGLOBIN 10.7 g/dL (11.5-14.8); LYMPHOCYTES # (AUTO) 0.8 K/uL (0.8-4.8); LYMPHOCYTES % (AUTO) 6.3 % (20.0-44.0); MEAN CORPUSCULAR HGB CONC 33 g/dl (31.0-36.0); MEAN CORPUSCULAR VOLUME 92 fL (82-100); MONOCYTES # (AUTO) 0.7 K/uL (0.1-1.30); MONOCYTES % (AUTO) 5.1 % (2.0-12.0); NEUTROPHILS # (AUTO) 11.5 K/uL (1.8-8.9); NEUTROPHILS % (AUTO) 87.7 % (43.0-81.0); PLATELET COUNT (AUTO) 275 K/uL (150-450); RED BLOOD CELL COUNT(AUTO) 3.53 MIL/uL (4.0-5.2); WHITE BLOOD COUNT (AUTO) 13.1 K/uL (4.3-11.0)
[2020-11-01 16:10] LABS: ALBUMIN 3.3 g/dL (3.4-5.0); BILIRUBIN,TOTAL 0.2 mg/dL (0.2-1.0); CALCIUM, SERUM 8.3 mg/dL (8.5-10.1); CREATININE 0.9 mg/dL (0.6-1.3); PHOSPHORUS 3.1 mg/dL (2.5-4.9); POTASSIUM 4.1 mmol/L (3.5-5.1)
--- NOTE | 2020-11-01 16:25 | NUR ---
REPORT GIVEN TO DEE DEE SAAVEDRA FOR MARLENY.
--- NOTE | 2020-11-01 16:26 | NUR ---
BED 309-2
[2020-11-01] MEDS ORDERED: LOSARTAN POTASSIUM 25 MG TABLET PO SCH (17:00)
[2020-11-01 17:10] LABS: THYROID STIMULATING HORMONE 3.516 uIU/mL (0.358-3.74)
--- NOTE | 2020-11-01 18:43 | NUR ---
MS/RN NOTES RECEIVED REPORT FROM TERRIE DASH NURSE A FEMALE 80 YEAR OLD PATIENT WITH A DIAGNOSIS OF FRACTURE INTERTROCHANTERIC RIGHT FEMUR. CHIEF COMPLAINED OF SEVERE RIGHT HIP PAIN AFTER A GROUND LEVEL FALL. NO KNOWN ALLERGY HISTORY OF ASTHMA, ARTHRITIS, LEFT HIP HIP REPLACEMENT HYPERTENSION. IV ACCESS AT RIGHT WRIST 20G PATENT AND INTACT. VITAL SIGN BP 124/71 PULSE 77 RR 18 SAOT2 97% TEMP 98.1. WILL ENDORSED TO SUPPLY CHAIN TECH FOR ASSESSMENT AND MARLENY.
[2020-11-01 19:10] VITALS: BP 132/63
--- NOTE | 2020-11-01 19:43 | NUR ---
MS RN OPENING NOTE PATIENT A/OX3; CYMRAES SPEAKING, ABLE TO MAKE NEEDS KNOWN. TOLERATING ROOM AIR WELL WITH NO SOB. WILL CONTINUE PAIN ASSESSMENT. R WRIST #20G S/L; PATENT AND INTACT. SAFETY MEASURES IN PLACE: BED TO LOWEST LOCKED POSITION, SIDE RAILS UPX2, CALL LIGHT WITHIN EASY REACH, BED ALARM ON. PATIENT IN STABLE CONDITION WILL CONTINUE PLAN OF CARE.
[2020-11-01 20:00] VITALS: BP 132/63
[2020-11-01] MEDS: MORPHINE SULFATE INJ 2 MG/ML DISP.SYRIN IV PRN (20:04)
--- NOTE | 2020-11-01 20:04 | NUR ---
MS RN NOTE - PAIN PATIENT C/O 02/10 RIGHT HIP PAIN. ADMINISTERED MORPHINE ORDERED. WILL CONTINUE TO REASSESS FOR PAIN IN 30 MINUTES.
[2020-11-01] MEDS: ENOXAPARIN SODIUM 40 MG/0.4 ML DISP.SYRIN SQ SCH (20:07)
[2020-11-01] MEDS: ATORVASTATIN 10 MG TABLET PO SCH (21:57)
[2020-11-02] MEDS: MORPHINE SULFATE INJ 2 MG/ML DISP.SYRIN IV PRN ×2 (01:59→15:53)
--- NOTE | 2020-11-02 01:59 | NUR ---
MS RN NOTE - PAIN PATIENT C/O 02/10 RIGHT HIP PAIN. ADMINISTERED MORPHINE ORDERED. WILL CONTINUE TO REASSESS FOR PAIN IN 30 MINUTES.
--- NOTE | 2020-11-02 05:59 | NUR ---
MS RN CLOSING NOTE PATIENT SLEEPING A/OX4; ABLE TO MAKE NEEDS KNOWN. TOLERATING ROOM AIR WELL WITH NO SOB. R HAND #20G S/L; PATENT AND INTACT. RAC #20G S/L; PATENT AND INTACT. ABNORMAL EXTERNAL ROTATION NOTED TO RLE. SAFETY MEASURES IN PLACE: BED TO LOWEST LOCKED POSITION, SIDE RAILS UPX3, CALL LIGHT WITHIN EASY REACH, BED ALARM ON. PATIENT IN STABLE CONDITION WILL CONTINUE PLAN OF CARE.
--- NOTE | 2020-11-02 07:46 | NUR ---
MS/RN OPENING NOTE RECEIVED PATIENT IN BED, AWAKE, A/OX4; ABLE TO MAKE NEEDS KNOWN. TOLERATING ROOM AIR WELL WITH NO SOB. NO DISTRESS NOTED. R HAND #20G S/L; PATENT AND INTACT. RAC #20G S/L; PATENT AND INTACT. SAFETY MEASURES IN PLACE: BED TO LOWEST LOCKED POSITION, SIDE RAILS UPX3, CALL LIGHT WITHIN EASY REACH, BED ALARM ON. WILL CONTINUE TO MONITOR PATIENT.
[2020-11-02 08:00] VITALS: BP 99/65
[2020-11-02] MEDS: PANTOPRAZOLE 40 MG TABLET.DR PO SCH (08:22)
[2020-11-02] MEDS: LOSARTAN POTASSIUM 50 MG TABLET PO SCH (08:25)
[2020-11-02] MEDS: NIFEdipine XL (30MG) 30 MG TAB PO SCH (08:25)
--- NOTE | 2020-11-02 08:26 | NUR ---
MS/RN NOTES LOSARTAN 100MG PO AND NIFEDIPINE ER 60MG PO WITHHELD DUE TO LOW BP RESULT OF 99/65. WILL CONTINUE TO MONITOR.
[2020-11-02] MEDS: GABAPENTIN 100 MG CAPSULE PO SCH (08:27)
[2020-11-02] MEDS ORDERED: NIFEdipine XL (30MG) 30 MG TAB PO SCH (09:00)
[2020-11-02] MEDS: HYDROCODONE/APAP 10/325MG TABLET PO PRN (09:42)
--- NOTE | 2020-11-02 09:52 | NUR ---
WOUND CARE CONSULT: PT REFUSED TO TURN FOR FULL SKIN ASSESSMENT. PT IS FOLLOWED BY DR SOSA FOR FEET. RECOMMENDATIONS MADE FOR SKIN PROTECTION. DISCUSSED WITH NURSING STAFF.MD IN AGREEMENT WITH PLAN OF CARE.
--- NOTE | 2020-11-02 11:35 | NUR ---
MS/RN NOTES CONTACTED DR. PAGAN REGARDING ORTHO CONSULT, PER DR. PAGAN, ORTHO WAS CALLED IN FROM ER YESTERDAY. TEXTED DR. BECKETT (ORTHO FIRE DEPARTMENT MARINE ENGINEER) AND FOLLOWED UP REGARDING PATIENT NEEDED TO BE SEEN FOR ORTHO CONSULT. AWAITING RESPONSE.
--- NOTE | 2020-11-02 15:39 | NUR ---
MS/RN NOTES PATIENT NOTIFIED RN THAT SHE IS NOT ABLE TO URINATE SINCE LAST NIGHT. RN VERIFIED WITH HANNAH PANG. RN DID A BLADDER SCAN AND SHOWED ABOUT 800 ML OF URINE IN THE BLADDER. PER PATIENT, SHE IS NOT USED TO PEEING IN THE DIAPER. EDUCATED PATIENT THAT SHE NEEDS TO TRY TO URINATE BECAUSE SHE MIGHT HAVE A BLADDER INFECTION DUE TO RETAINING URINE. PATIENT UNDERSTOOD. REPORTED ASSESSMENT TO DR. PAGAN.
[2020-11-02 16:08] VITALS: BP 129/78
--- NOTE | 2020-11-02 18:59 | NUR ---
MS/RN CLOSING NOTE PATIENT IN BED, AWAKE, A/OX4; ABLE TO MAKE NEEDS KNOWN. TOLERATING ROOM AIR WELL WITH NO SOB. NO DISTRESS NOTED. R HAND #20G S/L; PATENT AND INTACT. RAC #20G S/L; PATENT AND INTACT. ALL NEEDS MET. SAFETY MEASURES IN PLACE: BED TO LOWEST LOCKED POSITION, SIDE RAILS UPX3, CALL LIGHT WITHIN EASY REACH, BED ALARM ON. WILL ENDORSE TO THE NEXT SHIFT FOR CONTINUITY OF CARE.
--- NOTE | 2020-11-02 19:48 | NUR ---
MS RN OPENING NOTE PATIENT A/OX4; EGYPTIAN SPEAKING, ABLE TO MAKE NEEDS KNOWN. TOLERATING ROOM AIR WELL WITH NO SOB. R WRIST #20G S/L; PATENT AND INTACT. RAC #20G S/L; PATENT AND INTACT. PATIENT C/O NAUSEA, NO EMESIS NOTED. ADMINISTERED ZOFRAN ORDERED. WILL CONTINUE TO REASSESS FOR N/V IN 30 MINUTES. SAFETY MEASURES IN PLACE: BED TO LOWEST LOCKED POSITION, SIDE RAILS UPX3, CALL LIGHT WITHIN EASY REACH, BED ALARM ON. PATIENT IN STABLE CONDITION WILL CONTINUE PLAN OF CARE AND PAIN MANAGEMENT.
[2020-11-02 20:00] VITALS: BP 118/80
[2020-11-02] MEDS: ENOXAPARIN SODIUM 40 MG/0.4 ML DISP.SYRIN SQ SCH (21:46)
[2020-11-02] MEDS: ATORVASTATIN 10 MG TABLET PO SCH (21:49)
[2020-11-03] MEDS: IV NS 0.9% 1,000 ML IV PRN (03:54)
--- NOTE | 2020-11-03 05:13 | NUR ---
MS RN NOTE - RECEIVED ORDER FROM KENNEDY GONZALEZ MUSCULOSKELETAL PHYSICIAN FOR F/C. EDUCATED PATIENT RISKS AND BENEFITS OF F/C; VERBALIZED UNDERSTANDING. PATIENT REFUSED F/C.
[2020-11-03 05:48] LABS: BASOPHILS # (AUTO) 0.1 K/uL (0.0-0.2); EOSINOPHILS % (AUTO) 1.3 % (0.0-6.0); HEMATOCRIT 27 % (33-45); HEMOGLOBIN 9.2 g/dL (11.5-14.8); LYMPHOCYTES # (AUTO) 1.7 K/uL (0.8-4.8); LYMPHOCYTES % (AUTO) 23.9 % (20.0-44.0); MEAN CORPUSCULAR HGB CONC 34 g/dl (31.0-36.0); MEAN CORPUSCULAR VOLUME 91 fL (82-100); MONOCYTES # (AUTO) 0.8 K/uL (0.1-1.30); MONOCYTES % (AUTO) 12.1 % (2.0-12.0); NEUTROPHILS # (AUTO) 4.3 K/uL (1.8-8.9); NEUTROPHILS % (AUTO) 61.7 % (43.0-81.0); PLATELET COUNT (AUTO) 204 K/uL (150-450)
--- NOTE | 2020-11-03 06:25 | NUR ---
MS RN CLOSING NOTE PATIENT SLEEPING A/OX4; ABLE TO MAKE NEEDS KNOWN. TOLERATING ROOM AIR WELL WITH NO SOB. R HAND #20G S/L; PATENT AND INTACT. RAC #20G NS @ 125ML/HR; PATENT AND INTACT. ABNORMAL EXTERNAL ROTATION NOTED TO RLE. DRESSING TO FEET CHANGED PER ORDER AND KEPT C/D/I. SAFETY MEASURES IN PLACE: BED TO LOWEST LOCKED POSITION, SIDE RAILS UPX3, CALL LIGHT WITHIN EASY REACH, BED ALARM ON. PATIENT IN STABLE CONDITION WILL ENDORSE PLAN OF CARE.
[2020-11-03 06:54] LABS: BILIRUBIN,TOTAL 0.5 mg/dL (0.2-1.0); CALCIUM, SERUM 8.3 mg/dL (8.5-10.1); CREATININE 0.9 mg/dL (0.6-1.3); PHOSPHORUS 3.3 mg/dL (2.5-4.9); POTASSIUM 4.2 mmol/L (3.5-5.1); TOTAL PROTEIN, SERUM 6.7 g/dL (6.4-8.2)
--- NOTE | 2020-11-03 07:10 | NUR ---
RN NOTES SEEN IN BED RESTING, AWAKE AND VERBALLY RESPONSIVE. BREATHING EVEN AND UNLABORED, TOLERATING ROOM AIR. A/O X4, FAROESE-SPEAKING, ABLE TO MAKE NEEDS KNOWN. NO COMPLAINT OF PAIN AT THIS TIME. SEEN EATING BREAKFAST. SAFETY MEASURES IN PLACE. WILL CONTINUE TO MONITOR.
[2020-11-03 07:44] VITALS: BP 131/73
[2020-11-03] MEDS: GABAPENTIN 100 MG CAPSULE PO SCH (08:07)
[2020-11-03] MEDS: PANTOPRAZOLE 40 MG TABLET.DR PO SCH (08:07)
[2020-11-03] MEDS: LOSARTAN POTASSIUM 50 MG TABLET PO SCH (08:08)
[2020-11-03] MEDS: NIFEdipine XL (30MG) 30 MG TAB PO SCH (08:08)
[2020-11-03 08:55] LABS: IRON, SERUM 38 ug/dl (50-175); TOTAL IRON BINDING CAPACITY 252 ug/dl (250-450)
[2020-11-03 09:08] LABS: FERRITIN 50 ng/mL (8-388)
--- NOTE | 2020-11-03 12:00 | NUR ---
RN NOTES FAMILY AT BEDSIDE ABLE TO TRANSLATE FOR PATIENT; SEEN BY DR. BECKETT W/ ORDER FOR IM NAILING OF RIGHT INTERTROCHANTERIC HIP FX. SURGERY CONSENT FORMS SIGNED BY PATIENT AFTER TRANSLATED BY FAMILY. CONSENT FORMS PLACED IN CHART.
[2020-11-03] MEDS: MORPHINE SULFATE INJ 2 MG/ML DISP.SYRIN IV PRN (12:27)
[2020-11-03 16:00] VITALS: BP 108/60
--- NOTE | 2020-11-03 18:54 | NUR ---
RN NOTES PATIENT IN BED RESTING, AWAKE AND VERBALLY RESPONSIVE. BREATHING EVEN AND UNLABORED, CONTINUES ON ROOM AIR. NPO POST MIDNIGHT FOR SURGERY W/ DR. BECKETT TOMORROW. CONSENT IN CHART. SAFETY MEASURES MAINTAINED. WILL ENDORSE TO WAREHOUSE ADMINISTRATOR RN FOR MARLENY.
--- NOTE | 2020-11-03 19:00 | NUR ---
RECEIVED IN BED ALERT AND ORIENTATED FAMILY AT HER BEDSIDE AWARE SHE SCHEDULED FOR SURGERY IN THE AM AWARE SHE IS TO BE NPO AT MIDNIGHT HEBREW SPEAKING WITH SOME UNDERSTANDING OF BULGARIAN
[2020-11-03 19:38] VITALS: BP 114/54
[2020-11-03 20:00] VITALS: BP 114/54
[2020-11-03] MEDS: ENOXAPARIN SODIUM 40 MG/0.4 ML DISP.SYRIN SQ SCH (21:27)
[2020-11-03] MEDS: ATORVASTATIN 10 MG TABLET PO SCH (21:27)
[2020-11-04 01:24] LABS: BILIRUBIN,URINE NEGATIVE (NEGATIVE); COLOR,URINE YELLOW (YELLOW); LEUKOCYTE ESTERASE ,URINE NEGATIVE (NEGATIVE); NITRITE, URINE NEGATIVE (NEGATIVE); PH,URINE 5.5 (5.0-8.0); PROTEIN,URINE NEGATIVE (NEGATIVE); UGLUCOSE NEGATIVE (NEGATIVE); UROBILINOGEN,URINE 0.2 EU/dL (0.2)
[2020-11-04 01:57] LABS: BACTERIA,URINE None seen /HPF (None Seen); MUCUS,URINE Few /LPF (None Seen); SQUAMOUS EPITHELIAL CELL,UR Few /HPF (None Seen); WBC,URINE 0-2 /HPF (0-3)
[2020-11-04] MEDS: IV NS 0.9% 1,000 ML IV PRN (05:11)
[2020-11-04 06:42] LABS: BASOPHILS % (AUTO) 0.5 % (0.0-2.0); HEMATOCRIT 24 % (33-45); HEMOGLOBIN 8.2 g/dL (11.5-14.8); LYMPHOCYTES # (AUTO) 1.2 K/uL (0.8-4.8); LYMPHOCYTES % (AUTO) 15.2 % (20.0-44.0); MEAN CORPUSCULAR HGB CONC 34 g/dl (31.0-36.0); MEAN CORPUSCULAR VOLUME 91 fL (82-100); MONOCYTES # (AUTO) 0.9 K/uL (0.1-1.30); MONOCYTES % (AUTO) 11.8 % (2.0-12.0); NEUTROPHILS # (AUTO) 5.6 K/uL (1.8-8.9); NEUTROPHILS % (AUTO) 71.5 % (43.0-81.0); PLATELET COUNT (AUTO) 175 K/uL (150-450); RED BLOOD CELL COUNT(AUTO) 2.63 MIL/uL (4.0-5.2); WHITE BLOOD COUNT (AUTO) 7.8 K/uL (4.3-11.0)
--- NOTE | 2020-11-04 06:47 | NUR ---
scheduled for surgery this am alert and orientated x4 welsh speaking with some understanding of nicaraguan PTT GREATER THAN 170 CALL PLACED TO THE SURGEON MD BECKETT AND SPOKE TO HIM AND MADE AWARE CALLED THE OR NURSE AND INFORMED HER TO PLEASE REMIND HIM ABOUTBTHE PTT WHEN HE COME IN D/T WHEN I SPOKE TO HIM HE SOUNDED LIKE HE JUST WOKE UP AND HE WOULD NEEDED TO BE REMINDED OF THIS PTT BEING SO ELEVATED. NPO SINE MIDNIGHT
[2020-11-04 07:07] LABS: CALCIUM, SERUM 7.5 mg/dL (8.5-10.1); CREATININE 0.7 mg/dL (0.6-1.3); MAGNESIUM 1.8 mg/dL (1.8-2.4); PHOSPHORUS 2.7 mg/dL (2.5-4.9); POTASSIUM 3.8 mmol/L (3.5-5.1)
--- NOTE | 2020-11-04 07:16 | NUR ---
RN NOTES PATIENT IN BED SLEEPING, ABLE TO BE AWAKENED. A/O X4, SWEDISH-SPEAKING, ABLE TO MAKE NEEDS KNOWN. BREATHING EVEN AND UNLABORED, TOLERATING ROOM AIR. FOR SCHEDULED SURGERY AROUND [id number] TODAY, CHECKLIST COMPLETED AND CONSENT FORMS SIGNED. KEPT NPO POST MIDNIGHT. SAFETY MEASURES IN PLACE. WILL CONTINUE TO MONITOR.
[2020-11-04] MEDS: PANTOPRAZOLE 40 MG TABLET.DR PO SCH (07:30)
[2020-11-04 08:00] VITALS: BP 115/60
[2020-11-04] MEDS: NIFEdipine XL (30MG) 30 MG TAB PO SCH (08:17)
[2020-11-04] MEDS: LOSARTAN POTASSIUM 50 MG TABLET PO SCH (08:17)
[2020-11-04] MEDS: GABAPENTIN 100 MG CAPSULE PO SCH (08:17)
[2020-11-04] MEDS ORDERED: BUPIVACAINE 0.5 % PF 150 MG/30 ML VIAL ONE (09:04)
[2020-11-04] MEDS ORDERED: VANCOMYCIN 1 GM VIAL ONE (09:04)
--- NOTE | 2020-11-04 09:29 | NUR ---
RN NOTES PATIENT PICKED UP FOR SCHEDULED SURGERY TODAY VIA PATIENT'S OWN BED, ACCOMPANIED BY 2 OR NURSES.
[2020-11-04] MEDS ORDERED: HYDROMORPHONE INJ 2 MG/ML DISP.SYRIN ONE (09:42)
--- NOTE | 2020-11-04 11:35 | NUR ---
RN NOTES PATIENT RETURNED FROM SURGERY VIA PATIENT'S OWN BED, ACCOMPANIED BY 1 OR NURSE. POST-OP ORDERS FAXED TO PHARMACY BY OR.
[2020-11-04 11:45] VITALS: BP 111/72
[2020-11-04] MEDS: IV D5/0.45 NACL W/20 MEQ KCL 1L IV SCH (12:06)
--- NOTE | 2020-11-04 12:21 | NUR ---
RN NOTES PATIENT PLACED ON CLEAR LIQUIDS S/P SURGERY. PATIENT ABLE TO TOLERATE CLEAR LIQUID DIET; NO COMPLAINT OF NAUSEA/VOMITING, NO SWALLOWING ISSUES NOTED. WILL ADVANCE DIET TOLERATED.
--- NOTE | 2020-11-04 13:30 | NUR ---
RN NOTES PATIENT WAS SEEN BY PT TODAY FOR EVAL, W/ ORDER FROM MD 50% WEIGHT-BEARING ON RLE W/ WALKER. PATIENT VERBALIZED THAT SHE WANTED TO REST AND SLEEP AT THIS TIME; WILL DO PT EVAL IN AM.
[2020-11-04 16:00] VITALS: BP 117/82
[2020-11-04] MEDS: ANCEF 1 GM/50 ML D5W IV SCH (17:04)
--- NOTE | 2020-11-04 19:05 | NUR ---
RN NOTES PATIENT RESTING IN BED, NOT IN ACUTE DISTRESS. NO COMPLAINT OF PAIN AT THIS TIME. ASSISTED W/ ADLS TOLERATED; DIET TOLERATED AT THIS TIME. POST-OP ORDERS NOTED. SAFETY MEASURES MAINTAINED. ENDORSED TO DIRECTOR OF SCIENTIFIC RESEARCH RN FOR MARLENY.
--- NOTE | 2020-11-04 19:10 | NUR ---
MS/RN OPENING NOTE RECEIVED PATIENT RESTING IN BED WATCHING TV. ALERT AND ORIENTED X 4. BARBADIAN SPEAKING. ABLE TO MAKE NEEDS KNOWN. DENIES PAIN AT THIS TIME. CONTINUES ON ROOM AIR WITH NO S/SX OF RESPIRATORY DISTRESS NOTED. IV ACCESS TO RIGHT WRIST #20G AND RIGHT AC #20G BOTH INTACT AND PATENT. CONTINUES IN IVF NS D5 1/2 NS WITH 20MEQ POTASSIUM @ 75ML/HR. CONTINUES ON IV ABX. SURGICAL DRESSINGS TO RIGHT LOWER EXTREMITY CLEAN, DRY AND INTACT. ICE PACK PROVIDED PER PATIENT REQUEST. CALL LIGHT WITHIN REACH. ASPIRATION, FALL AND SAFETY PRECAUTIONS MAINTAINED. WILL CONTINUE TO MONITOR.
[2020-11-04 20:10] VITALS: BP 125/56
[2020-11-04] MEDS: ATORVASTATIN 10 MG TABLET PO SCH (21:03)
[2020-11-04] MEDS: MORPHINE SULFATE INJ 2 MG/ML DISP.SYRIN IV PRN (21:04)
[2020-11-05] VITALS (8 sets, daily range): BP systolic 120–138; BP diastolic 60–108
[2020-11-05] MEDS: ANCEF 1 GM/50 ML D5W IV SCH ×2 (01:58→10:14)
[2020-11-05] MEDS: IV D5/0.45 NACL W/20 MEQ KCL 1L IV SCH (01:58)
--- NOTE | 2020-11-05 05:00 | NUR ---
MS/RN NOTE PATIENT REFUSED TO BE CHANGED AND REFUSED PICTURES TO BE TAKEN OF WOUNDS X MULTIPLE ATTEMPTS.
[2020-11-05 05:59] LABS: BASOPHILS % (AUTO) 0.1 % (0.0-2.0); HEMATOCRIT 21 % (33-45); LYMPHOCYTES # (AUTO) 0.9 K/uL (0.8-4.8); LYMPHOCYTES % (AUTO) 13.1 % (20.0-44.0); MEAN CORPUSCULAR HGB CONC 33 g/dl (31.0-36.0); MEAN CORPUSCULAR VOLUME 92 fL (82-100); MONOCYTES # (AUTO) 0.7 K/uL (0.1-1.30); MONOCYTES % (AUTO) 10.5 % (2.0-12.0); NEUTROPHILS # (AUTO) 5.1 K/uL (1.8-8.9); NEUTROPHILS % (AUTO) 76.3 % (43.0-81.0); PLATELET COUNT (AUTO) 181 K/uL (150-450); RED BLOOD CELL COUNT(AUTO) 2.23 MIL/uL (4.0-5.2); WHITE BLOOD COUNT (AUTO) 6.7 K/uL (4.3-11.0)
--- NOTE | 2020-11-05 06:10 | NUR ---
MS/RN CLOSING NOTE PATIENT CURRENTLY SLEEPING IN BED. ALERT AND ORIENTED X 4. BARBADIAN SPEAKING. ABLE TO MAKE NEEDS KNOWN. DENIES PAIN AT THIS TIME. CONTINUES ON ROOM AIR WITH NO S/SX OF RESPIRATORY DISTRESS NOTED. IV ACCESS TO RIGHT WRIST #20G AND RIGHT AC #20G BOTH INTACT AND PATENT. CONTINUES IN IVF NS D5 1/2 NS WITH 20MEQ POTASSIUM @ 75ML/HR. CONTINUES ON IV ABX. SURGICAL DRESSINGS TO RIGHT LOWER EXTREMITY CLEAN, DRY AND INTACT. PATIENT REFUSED TO BE CHANGED THIS MORNING X MULTIPLE ATTEMPTS. CALL LIGHT WITHIN REACH. ASPIRATION, FALL AND SAFETY PRECAUTIONS MAINTAINED. WILL ENDORSE PLAN OF CARE TO ONCOMING SHIFT. WILL ENDORSE PLAN OF CARE TO ONCOMING SHIFT.
[2020-11-05 07:01] LABS: CALCIUM, SERUM 7.3 mg/dL (8.5-10.1); CREATININE 0.7 mg/dL (0.6-1.3); MAGNESIUM 1.9 mg/dL (1.8-2.4); PHOSPHORUS 2.2 mg/dL (2.5-4.9); POTASSIUM 4.2 mmol/L (3.5-5.1)
--- NOTE | 2020-11-05 07:10 | NUR ---
m/s vest finisher: notes received pt in bed awake, a/ox4; [place] citizen speaking. noted iv out/dislodged. stopped iv fluids. no c/o pain or any discomfort. s/p Intramedullary nailing of right intertrochanteric hip. hip dressing in place. no drainage/discharge noted. instructed to call for assistance. will continue to monitor.
--- NOTE | 2020-11-05 07:30 | NUR ---
m/s retail security professional: notes lab called re: low hemoglobin 6.8. s/p Intramedullary nailing of right intertrochanteric hip with dressing in place. pt made aware re: low hemoglobin with possible blood transfusion with sri [place]ank[place] staff translating. pt verbalized understanding and agreed for blood transfusion. left message to dr. wilson.
[2020-11-05 07:31] LABS: HEMOGLOBIN 6.8 g/dL (11.5-14.8)
[2020-11-05] MEDS: PANTOPRAZOLE 40 MG TABLET.DR PO SCH (08:17)
[2020-11-05] MEDS: GABAPENTIN 100 MG CAPSULE PO SCH (08:17)
[2020-11-05] MEDS: NIFEdipine XL (30MG) 30 MG TAB PO SCH (08:17)
[2020-11-05] MEDS: LOSARTAN POTASSIUM 50 MG TABLET PO SCH (08:17)
--- NOTE | 2020-11-05 09:20 | NUR ---
m/s manager media: notes received order from dr. wilson to give 1 unit prbc. pt made aware of order. pt already signed blood transfusion consent on the 3rd. order carried out and acknowledged.
[2020-11-05] MEDS ORDERED: K PHOS NEUTRAL 250 MG TABLET PO ONE (09:30)
--- NOTE | 2020-11-05 10:00 | NUR ---
m/augustus rosario: notes pt refused to be repositioned. Addendum: 11/05/20 at 1911 by KATHIE HENNING LVN also pt refused am care.
[2020-11-05 10:17] LABS: BAND % (MANUAL) 2 % (0.0-5.0); LYMPHOCYTES % (MANUAL) 8 % (16-48); MONOCYTES % (MANUAL) 5 % (0-11.0); NEUTROPHILS % (MANUAL) 85 (42-76)
--- NOTE | 2020-11-05 12:00 | NUR ---
m/s heating systems installer: notes pt still refused to afternoon care and repositioning.
--- NOTE | 2020-11-05 14:32 | NUR ---
m/s proposal coordinator: notes vss, afebrile. started 1 unit of prbc with another nurse verifying. pt is awake, a/ox4. no c/o pain or any discomfort.
--- NOTE | 2020-11-05 14:47 | NUR ---
m/s antenna design engineer: notes no a/r noted after 15 minutes of transfusion. remains afebrile, vss. instructed to call for assistance. will continue to monitor.
--- NOTE | 2020-11-05 15:17 | NUR ---
m/s asphalt surface heater operator: notes blood still infusing without a/r noted. vss, afebrile. call light within reach.
--- NOTE | 2020-11-05 16:17 | NUR ---
m/s branding machine operator: notes blood still infusing without a/r noted. family at bedside. vss, afebrile. instructed to call for assistance.
--- NOTE | 2020-11-05 17:20 | NUR ---
m/s residential manager: notes having dinner, hob elevated. family remains at bedside. blood transfusion still infusing without a/r noted. will continue to monitor.
--- NOTE | 2020-11-05 17:40 | NUR ---
m/s car tester: notes blood transfusion completed without a/r noted. family remains at bedside. needs attended. vss, afebrile. instructed to call for assistance. will continue to monitor.
[2020-11-05] MEDS: MORPHINE SULFATE INJ 2 MG/ML DISP.SYRIN IV PRN ×2 (18:11→20:30)
--- NOTE | 2020-11-05 18:11 | NUR ---
m/s internet sales manager: notes pt request to get a shot of morphine with gibralt[place] staff translating prior to moving to be change. morphine 2mg ivp given by rn. pt refused male surgical services assistant and wants female surgical services assistant, but not available at this time. pt refused to be changed. cn aware. pt wants to wait til a female staff is available.
[2020-11-05] MEDS: IV NS 0.9% 1,000 ML IV PRN (18:18)
--- NOTE | 2020-11-05 18:41 | NUR ---
m/s hall porter: notes pt verbalized relief of pain. instructed to call for assistance. will continue to monitor.
--- NOTE | 2020-11-05 19:05 | NUR ---
m/s application development project manager: notes report given to yamil (rn) for continuity of care.
--- NOTE | 2020-11-05 19:30 | NUR ---
MS RN OPENING PATIENT ENDORSED TO ME IN BED. A/OX4. KINYARWANDA SPEAKING. COMPLAINING OF PAIN. NO S/S OF APPARENT DISTRESS. IV NS RUNNING @ 125 ML/HR. SAFETY IN PLACE: BED IN LOWEST, LOCKED POSITION. CALL LIGHT WITHIN REACH. WILL CONTINUE TO MONITOR.
--- NOTE | 2020-11-05 20:35 | NUR ---
MS RN NOTES PATIENT C/O 10/10 PAIN. GIVEN MORPHINE AT THIS TIME. WILL REASSESS.
[2020-11-05] MEDS: ATORVASTATIN 10 MG TABLET PO SCH (21:10)
[2020-11-06] MEDS: IV NS 0.9% 1,000 ML IV PRN (03:09)
[2020-11-06] MEDS: HYDROCODONE/APAP 10/325MG TABLET PO PRN (06:26)
--- NOTE | 2020-11-06 06:26 | NUR ---
MS RN NOTES PATIENT C/O 6/10 PAIN. GIVEN NORCO 10-325. WILL REASSESS.
[2020-11-06 06:33] LABS: BASOPHILS % (AUTO) 0.6 % (0.0-2.0); EOSINOPHILS % (AUTO) 5.1 % (0.0-6.0); HEMATOCRIT 25 % (33-45); HEMOGLOBIN 8.5 g/dL (11.5-14.8); LYMPHOCYTES # (AUTO) 1.4 K/uL (0.8-4.8); LYMPHOCYTES % (AUTO) 19.1 % (20.0-44.0); MEAN CORPUSCULAR HGB CONC 35 g/dl (31.0-36.0); MEAN CORPUSCULAR VOLUME 91 fL (82-100); MONOCYTES # (AUTO) 0.7 K/uL (0.1-1.30); MONOCYTES % (AUTO) 10.4 % (2.0-12.0); NEUTROPHILS # (AUTO) 4.6 K/uL (1.8-8.9); NEUTROPHILS % (AUTO) 64.8 % (43.0-81.0); PLATELET COUNT (AUTO) 222 K/uL (150-450); WHITE BLOOD COUNT (AUTO) 7.1 K/uL (4.3-11.0)
[2020-11-06 06:55] LABS: CALCIUM, SERUM 7.6 mg/dL (8.5-10.1); CREATININE 0.6 mg/dL (0.6-1.3); MAGNESIUM 1.7 mg/dL (1.8-2.4); PHOSPHORUS 2.6 mg/dL (2.5-4.9); POTASSIUM 3.7 mmol/L (3.5-5.1)
--- NOTE | 2020-11-06 07:31 | NUR ---
MS RN CLOSING NOTE PATIENT IN BED. A/OX4. NO S/S OF APPARENT DISTRESS. PAIN MANAGED WITH MEDICATIONS. IV NS RUNNING @125ML/HR. DRESSING DRY, CLEAN, AND INTACT. SAFETY KEPT IN PLACE THE WHOLE SHIFT: BED IN LOWEST, LOCKED POSITION. CALL LIGHT WITHIN REACH. ALL NEEDS ATTENDED. ALL SCHED MEDS ADMINISTERED. WILL ENDORSE CARE TO MORNING RN.
[2020-11-06] MEDS: GABAPENTIN 100 MG CAPSULE PO SCH (08:29)
[2020-11-06] MEDS: PANTOPRAZOLE 40 MG TABLET.DR PO SCH (08:29)
[2020-11-06] MEDS: NIFEdipine XL (30MG) 30 MG TAB PO SCH (08:29)
[2020-11-06] MEDS: LOSARTAN POTASSIUM 50 MG TABLET PO SCH (08:29)
--- NOTE | 2020-11-06 08:44 | NUR ---
m/s meat and seafood manager: md visit seen and examined by dr. guevara with new orders. orders acknowledged.
--- NOTE | 2020-11-06 10:40 | NUR ---
m/s road cutter: notes up with physical therapy using fww at this time.
[2020-11-06] MEDS: Magnesium 1GM/D5W 100ML PREMIX 100 ML IV SCH ×2 (12:08→13:11)
--- NOTE | 2020-11-06 16:10 | NUR ---
m/s supervisor rides: notes sister visiting and made aware re: d'c planning to acute rehab. pt is agreeable. susana (jose) speaking to sister and letting her know re: d'c planning for tomorrow.
[2020-11-06] MEDS: ENSURE ENLIVE 237 ML LIQUID (VANILLA) PO SCH (16:23)
--- NOTE | 2020-11-06 18:00 | NUR ---
m/s legal entity controller: notes resting comfortable in bed. needs attended. no distress noted. call light within reach.
--- NOTE | 2020-11-06 19:00 | NUR ---
m/s military equipment specialist: notes report given to yamil (rn) for continuity of care.
--- NOTE | 2020-11-06 19:32 | NUR ---
MS RN OPENING PATIENT IN BED. A/OX4. NO S/S OF APPARENT DISTRESS. NO C/O PAIN AT THE MOMENT. IV NS RUNNING @ 125 ML/HR. SAFETY IN PLACE: BED IN LOWEST, LOCKED POSITION. CALL LIGHT WITHIN REACH. WILL CONTINUE TO MONITOR. Addendum: 11/06/20 at 2141 by MARY THOMAS RN MS RN OPENING PATIENT IN BED. A/OX4. NO S/S OF APPARENT DISTRESS. NO C/O PAIN AT THE MOMENT. NO FLUIDS RUNNING. SAFETY IN PLACE: BED IN LOWEST, LOCKED POSITION. CALL LIGHT WITHIN REACH. WILL CONTINUE TO MONITOR.
[2020-11-06 20:00] VITALS: BP_SYST 123; BP_SYST 127; BP_DIAS 61; BP_DIAS 80
[2020-11-06 20:22] VITALS: BP 92/55
[2020-11-06] MEDS: ATORVASTATIN 10 MG TABLET PO SCH (22:38)
--- NOTE | 2020-11-07 05:30 | NUR ---
MS RN NOTES FOUND [place] ON L. POSTERIOR THIGH UPON CHANGING. PICTURE TAKEN AND CHARTED. WILL MONITOR FOR CHANGES.
--- NOTE | 2020-11-07 06:20 | NUR ---
MS RN CLOSING NOTE PATIENT IN BED WITH EYES CLOSED, EASY TO AROUSE. A/OX4. NO S/S OF APPARENT DISTRESS. NO C/O PAIN AT THIS TIME. NO IV FLUID RUNNING WARNER. DRESSING DRY, CLEAN, AND INTACT. SAFETY KEPT IN PLACE THE WHOLE SHIFT: BED IN LOWEST, LOCKED POSITION. CALL LIGHT WITHIN REACH. ALL NEEDS ATTENDED. ALL SCHED MEDS ADMINISTERED. WILL ENDORSE CARE TO MORNING RN.
[2020-11-07 06:27] LABS: BASOPHILS # (AUTO) 0.1 K/uL (0.0-0.2); BASOPHILS % (AUTO) 0.8 % (0.0-2.0); EOSINOPHILS % (AUTO) 7.6 % (0.0-6.0); HEMATOCRIT 28 % (33-45); HEMOGLOBIN 9.3 g/dL (11.5-14.8); LYMPHOCYTES # (AUTO) 1.2 K/uL (0.8-4.8); LYMPHOCYTES % (AUTO) 15.1 % (20.0-44.0); MEAN CORPUSCULAR HGB CONC 34 g/dl (31.0-36.0); MEAN CORPUSCULAR VOLUME 91 fL (82-100); MONOCYTES # (AUTO) 0.7 K/uL (0.1-1.30); MONOCYTES % (AUTO) 9.2 % (2.0-12.0); NEUTROPHILS # (AUTO) 5.3 K/uL (1.8-8.9); NEUTROPHILS % (AUTO) 67.3 % (43.0-81.0); PLATELET COUNT (AUTO) 272 K/uL (150-450); RED BLOOD CELL COUNT(AUTO) 3.03 MIL/uL (4.0-5.2); WHITE BLOOD COUNT (AUTO) 7.8 K/uL (4.3-11.0)
[2020-11-07 07:10] LABS: CALCIUM, SERUM 8.2 mg/dL (8.5-10.1); CREATININE 0.6 mg/dL (0.6-1.3); POTASSIUM 3.5 mmol/L (3.5-5.1)
--- NOTE | 2020-11-07 07:43 | NUR ---
MS RN OPENING NOTE PATIENT IS IN BED RESTING, PATIENT IS IN NO ACUTE DISTRESS, PATIENT IS ON ROOM AIR SATURATING WELL. SAFETY PRECAUTIONS ARE ON, BED IS LOCKED IN THE LOWEST POSITION WITH SIDE RAILS UP, CALL LIGHT WITHIN THE REACH. WILL CONTINUE TO MONITOR CLOSELY.
[2020-11-07] MEDS: GABAPENTIN 100 MG CAPSULE PO SCH (09:30)
[2020-11-07 09:31] VITALS: BP 122/78
[2020-11-07] MEDS: LOSARTAN POTASSIUM 50 MG TABLET PO SCH (09:31)
[2020-11-07] MEDS: ENSURE ENLIVE 237 ML LIQUID (VANILLA) PO SCH ×2 (09:31→12:20)
[2020-11-07] MEDS: PANTOPRAZOLE 40 MG TABLET.DR PO SCH (09:31)
[2020-11-07] MEDS: NIFEdipine XL (30MG) 30 MG TAB PO SCH (09:31)
[2020-11-07] MEDS ORDERED: ENOXAPARIN SODIUM 40 MG/0.4 ML DISP.SYRIN SQ SCH (10:00)
[2020-11-07] MEDS: HYDROCODONE/APAP 10/325MG TABLET PO PRN (16:14)
--- NOTE | 2020-11-07 16:25 | NUR ---
MS STEAM BOILER FIREMAN NOTE PATIENT IS MEDICALLY STABLE TO BE DISCHARGED. PATIENT IS IN NO ACUTE DISTRESS. EDUCATED PATIENT ON DISCHARGE INSTRUCTIONS, PATIENT VERBALIZED UNDERSTANDING. PATIENTS NEEDS WERE ADDRESSED DURING THE STAY. BELONGINGS LIST WENT OVER AND SIGNED. PATIENTS IV LINE AND ID BAND TAKEN OUT. PATIENT IS BEING TRANSFERRED BY EMERGENCY MEDICINE PHYSICIAN ASSISTANT TO [facility]. PATIENT TRANSFERRED BY [facility]. MD IS AWARE OF DISCHARGE.
== END 2020-11-07 16:25 | DRG 308 ==
LOC: ER 12:54 → MED 16:37
PROVIDERS: ATTEND Nurse Practitioner Acute Care
PROC: 0QS606Z Reposition Right Upper Femur with Intramedullary Internal Fixation Device, Open Approach (ICD-10-PCS; principal; 2020-11-04)
PROC: 30233N1 Transfusion of Nonautologous Red Blood Cells into Peripheral Vein, Percutaneous Approach (ICD-10-PCS; 2020-11-05)
DX: S72.141A Displaced intertrochanteric fracture of right femur, initial encounter for closed fracture (principal); N17.0 Acute kidney failure with tubular necrosis; N17.9 Acute kidney failure, unspecified; G62.9 Polyneuropathy, unspecified; M06.9 Rheumatoid arthritis, unspecified; E83.39 Other disorders of phosphorus metabolism; I10 Essential (primary) hypertension; W01.0XXA Fall on same level from slipping, tripping and stumbling without subsequent striking against object, initial encounter; Y92.9 Unspecified place or not applicable; M81.0 Age-related osteoporosis without current pathological fracture; E78.5 Hyperlipidemia, unspecified; Z79.899 Other long term (current) drug therapy; Z79.82 Long term (current) use of aspirin; Z96.642 Presence of left artificial hip joint; M85.80 Other specified disorders of bone density and structure, unspecified site; D62 Acute posthemorrhagic anemia; I73.9 Peripheral vascular disease, unspecified; M24.475 Recurrent dislocation, left foot; M24.474 Recurrent dislocation, right foot; S91.302A Unspecified open wound, left foot, initial encounter; S91.301A Unspecified open wound, right foot, initial encounter; X58.XXXA Exposure to other specified factors, initial encounter
CPT/HCPCS: 36415; 71045-TC; 73502; 73552; 80048-TC; 80053-TC; 80061-TC; 81001; 82728-TC; 83540-TC; 83735-TC; 84100-TC; 84443-TC; 85025-TC; 85730-TC; 86850-TC; 87081-TC; 87086-TC; 93307-TC; 97112-TC; 97116-TC; 97530-TC; A6209; A6403; C1713; G0378; J0690; J1100; J1170; J1650; J1885; J2270; J2405; J2704; J3370; J3475; J3480; J3490; J7030; J7050; J7060; P9016

== ENCOUNTER 2021-01-24 13:30 | Outpatient (CLI) | payer MEDICARE, OTHER ==
[~2021-01-24 13:30] MED LIST changes: +GABA-532 PO; -MELO-105 PO; -SULF1TAB48 PO; -TERI2.4P SUBCUT; +TRAM50TA2 PO
== END 2021-01-24 23:59 | disposition home health service (06) ==
LOC: WOU 13:30
PROVIDERS: ATTEND Podiatrist Foot & Ankle Surgery
DX: G90.09 Other idiopathic peripheral autonomic neuropathy (principal); L97.522 Non-pressure chronic ulcer of other part of left foot with fat layer exposed; L84 Corns and callosities; M05.771 Rheumatoid arthritis with rheumatoid factor of right ankle and foot without organ or systems involvement; M20.42 Other hammer toe(s) (acquired), left foot; M20.41 Other hammer toe(s) (acquired), right foot; Z79.82 Long term (current) use of aspirin
CPT/HCPCS: 11042

== ENCOUNTER 2021-04-18 09:45 | Outpatient (CLI) | payer MEDICARE, OTHER | END 2021-04-18 23:59 | disposition home health service (06) | LOC: WOU 09:45 | PROVIDERS: ATTEND Podiatrist Foot & Ankle Surgery | DX: G90.09 Other idiopathic peripheral autonomic neuropathy (principal); L97.512 Non-pressure chronic ulcer of other part of right foot with fat layer exposed; L84 Corns and callosities; M05.771 Rheumatoid arthritis with rheumatoid factor of right ankle and foot without organ or systems involvement; M20.42 Other hammer toe(s) (acquired), left foot; M20.41 Other hammer toe(s) (acquired), right foot; Z79.82 Long term (current) use of aspirin | CPT/HCPCS: 11042; 11055 ==

== ENCOUNTER 2021-07-11 10:17 | Outpatient (CLI) | payer MEDICARE, OTHER | END 2021-07-11 23:59 | disposition home health service (06) | LOC: WOU 10:17 | PROVIDERS: ATTEND Podiatrist Foot & Ankle Surgery | DX: G90.09 Other idiopathic peripheral autonomic neuropathy (principal); L97.522 Non-pressure chronic ulcer of other part of left foot with fat layer exposed; L97.512 Non-pressure chronic ulcer of other part of right foot with fat layer exposed; L84 Corns and callosities; M20.42 Other hammer toe(s) (acquired), left foot; M20.41 Other hammer toe(s) (acquired), right foot; M05.771 Rheumatoid arthritis with rheumatoid factor of right ankle and foot without organ or systems involvement | CPT/HCPCS: 11042; 11055 ==

== ENCOUNTER 2021-07-18 10:33 | Outpatient (CLI) | payer MEDICARE, OTHER | END 2021-07-18 23:59 | disposition home or self-care (01) | LOC: WOU 10:33 | PROVIDERS: ATTEND Podiatrist Foot & Ankle Surgery | DX: G90.09 Other idiopathic peripheral autonomic neuropathy (principal); L97.522 Non-pressure chronic ulcer of other part of left foot with fat layer exposed; L97.512 Non-pressure chronic ulcer of other part of right foot with fat layer exposed; M20.42 Other hammer toe(s) (acquired), left foot; M20.41 Other hammer toe(s) (acquired), right foot; L84 Corns and callosities; M05.771 Rheumatoid arthritis with rheumatoid factor of right ankle and foot without organ or systems involvement | CPT/HCPCS: 11042 ==

== ENCOUNTER 2022-03-13 09:31 | Outpatient (CLI) | payer MEDICARE, OTHER | END 2022-03-13 23:59 | disposition home or self-care (01) | LOC: WOU 09:31 | PROVIDERS: ATTEND Podiatrist Foot & Ankle Surgery | DX: G90.09 Other idiopathic peripheral autonomic neuropathy (principal); M05.771 Rheumatoid arthritis with rheumatoid factor of right ankle and foot without organ or systems involvement; L84 Corns and callosities; M20.42 Other hammer toe(s) (acquired), left foot; M20.41 Other hammer toe(s) (acquired), right foot | CPT/HCPCS: G0463 ==

== ENCOUNTER 2022-07-31 09:02 | Outpatient (CLI) | payer MEDICARE, OTHER ==
[2022-07-31] MEDS ORDERED: BACI/NEOM/POLY B OINT PKT 1 UDPKT PACKET ONE (09:40)
== END 2022-07-31 23:59 | disposition home or self-care (01) ==
LOC: WOU 09:02
PROVIDERS: ATTEND Podiatrist Foot & Ankle Surgery
DX: G90.09 Other idiopathic peripheral autonomic neuropathy (principal); L97.512 Non-pressure chronic ulcer of other part of right foot with fat layer exposed; L84 Corns and callosities; M05.771 Rheumatoid arthritis with rheumatoid factor of right ankle and foot without organ or systems involvement; M20.42 Other hammer toe(s) (acquired), left foot; M20.41 Other hammer toe(s) (acquired), right foot; M79.671 Pain in right foot; Z79.899 Other long term (current) drug therapy; Z79.82 Long term (current) use of aspirin
CPT/HCPCS: 11042

== ENCOUNTER 2022-08-14 14:00 | Outpatient (CLI) | payer MEDICARE, OTHER | END 2022-08-14 23:59 | disposition home or self-care (01) | LOC: WOU 14:00 | PROVIDERS: ATTEND Surgery | DX: L84 Corns and callosities (principal); G90.09 Other idiopathic peripheral autonomic neuropathy; L97.518 Non-pressure chronic ulcer of other part of right foot with other specified severity; M05.771 Rheumatoid arthritis with rheumatoid factor of right ankle and foot without organ or systems involvement; M79.672 Pain in left foot; M79.671 Pain in right foot; M20.42 Other hammer toe(s) (acquired), left foot; M20.41 Other hammer toe(s) (acquired), right foot; Z79.82 Long term (current) use of aspirin; Z79.899 Other long term (current) drug therapy | CPT/HCPCS: G0463 ==